=== PATIENT | male | born 1980 | race Caucasian/White ===

== ENCOUNTER 2016-11-27 07:02 | Emergency (ER) | payer OTHER ==
--- NOTE | 2016-11-27 07:38 | ED Physician Documentation ---
PD HPI OPHTHO - Stated complaint Stated Complaint: BURNING SENSATION ON FACE - Chief complaint Chief Complaint: Heent - History obtained from History obtained from: Patient - History of Present Illness Timing - onset: Last night Timing - duration: Hours Timing - details: Abrupt onset, Still present Location: Right Quality / character: Burning, Throbbing, Sharp Associated symptoms: Redness, Swelling, Tearing. No: Loss of vision Contributing factors: Other (The patient cleaned his contact lenses with a new cleaning solution and when he put the contact into his eye he had instant burning and irritation. He rinsed his eye but continues to have irritation, redness and pain. He indicates the new cleaning solution contains H2O2.) Similar symptoms before: Has not had sx before Recently seen: Not recently seen Review of Systems Constitutional: denies: Fever Eyes: reports: Irritation. denies: Loss of vision, Decreased vision Ears: denies: Ear pain Nose: denies: Congestion Respiratory: denies: Dyspnea, Cough GI: denies: Vomiting PD PAST MEDICAL HISTORY - Present Medications Home Medications: Ambulatory Orders Medication Instructions Recorded Confirmed Neomycin/Poly/Dex Ophth Drops 1 drops RIGHTEYE QID #1 bottle 11/27/16 [Maxitrol Ophth Drops] PD ED PE NORMAL - Vitals Vital signs reviewed: Yes (tachy and hypertensive) - General General: Alert and oriented X 3, Well developed/nourished, Other (There is obvious right eye irritation with injection and swelling to the lid. ) - HEENT HEENT: Atraumatic, PERRL, EOMI, Other (scleral injection and swelling of the lids is consistent with the level of irritation expressed. ) - Neck Neck: Supple, no meningeal sign - Respiratory Respiratory: No respiratory distress - Derm Derm: Normal color, Warm and dry, No rash - Extremities Extremities: No deformity, No edema - Neuro Neuro: No motor deficit, No sensory deficit - Psych Psych: Normal mood, Normal affect Results - Vitals Vitals: Vital Signs - 24 hr 11/27/16 07:18 Temperature 37.1 C Heart Rate 118 H Respiratory 16 Rate Blood Pressure 152/109 H O2 Saturation 96 Oxygen O2 Source Room air PD MEDICAL DECISION MAKING - ED course Complexity details: considered differential, d/w patient ED course: 36-year-old male who is placed a contact lens incompletely rinsed of a cleaning solution back into his eye and has irritated his eye. He continues to have irritation 12 hours later and here in the emergency department his eyes irrigated. Departure - Departure Disposition: 01 Home, Self Care Clinical Impression: Chemical conjunctivitis of right eye Condition: Stable Instructions: ED Chemical Conjunctivitis Follow-Up: Anirudh May DO [Primary Care Provider] - Prescriptions: Neomycin/Poly/Dex Ophth Drops [Maxitrol Ophth Drops] 1 drops RIGHTEYE QID #1 bottle Comments: Today in the Emergency Department your blood pressure was elevated. This can happen from the stress of the visit itself, from a current illness or circumstance or from uncontrolled hypertension. If you take blood pressure medications take your usual mediations, have your blood pressure re-checked in an appropriate setting and follow up any elevation with your primary care doctor.
[2016-11-27] MEDS ORDERED: NEOMYCIN/POLYMYX/DEXAMETH OPHTH DROPS 5 ML RIGHTEYE STA (08:12)
[2016-11-27] MEDS ORDERED: NEOMYCIN/POLYMYX/DEXAMETH OPHTH DROPS 5 ML ONE (08:20)
[2016-11-27 08:29] VITALS: BP 143/90
== END 2016-11-27 08:28 | disposition home or self-care (01) ==
LOC: ED 07:02
DX: T65.891A Toxic effect of other specified substances, accidental (unintentional), initial encounter (principal); H10.211 Acute toxic conjunctivitis, right eye; R03.0 Elevated blood-pressure reading, without diagnosis of hypertension
CPT/HCPCS: 99283; J3490